=== PATIENT | male | born 1990 | race Caucasian/White ===

== ENCOUNTER 2019-10-31 20:19 | Inpatient (IN) ==
[2019-10-31 21:29] LABS: Bilirubin,Urine Negative (Negative); Blood,Urine Negative (Negative); Clarity,Urine Clear (Clear); Color,Urine Yellow (Yellow); Glucose,Urine (UA) Normal (Normal); Ketones,Urine Negative (Negative); Leukocyte Esterase,Urine Negative (Negative); Nitrite,Urine Negative (Negative); PH,Urine 7.5 pH Units (5.0-8.0); Protein,Urine Negative (Neg-Trace); Specific Gravity,Urine 1.017 (1.010-1.025); Urobilinogen,Urine Normal (Normal)
[2019-10-31 21:32] LABS: Basophils # 0.1 K/mcL (0.0-0.2); Basophils % 0.5 %; Eosinophils # 0.2 K/mcL (0.0-0.6); Eosinophils % 1.5 %; Hematocrit 45.9 % (37.5-50.1); Hemoglobin 16.2 g/dL (12.9-16.9); Immature Granulocytes % 0.5 % (0-4); Lymphocytes # 2.5 K/mcL (0.6-4.6); Mean Corpuscular HGB Conc 35.3 g/dL (31.6-35.5); Mean Corpuscular Hemoglobin 29.7 pg (28.0-33.3); Mean Corpuscular Volume 84.2 fL (83.0-100.0); Mean Platelet Volume 10.2 fL (9.4-12.4); Monocytes % 8.8 %; Neutrophils # 7.2 K/mcL (1.6-8.9); Platelet Count 248 K/mcL (140-400); Red Blood Count 5.45 M/mcL (4.19-5.50); Red Cell Distribution Width 13.2 % (11.5-14.5); Segmented Neutrophils % 65.7 %
[2019-10-31 21:41] LABS: Acetaminophen < 10 mcg/mL (10-20); BUN/Creatinine Ratio 8 (6-26); Blood Urea Nitrogen 10 mg/dL (6-20); Calcium 9.8 mg/dL (8.6-10.3); Carbon Dioxide 29 mEq/L (23-29); Chloride 107 mEq/L (98-107); Ethanol < 10 mg/dL (Less than 10); Glucose 100 mg/dL (70-105); Osmolality,Calculated 293 (280-300); Salicylate < 2.5 mg/dL (15.0-30.0); Sodium 142 mEq/L (136-145); eGFR For African Americans > 60 (> 60); eGFR For Non-African Americans > 60 (> 60)
[2019-10-31 21:47] LABS: Amphetamine Screen,Urine Negative ng/mL (Cutoff=1000); Barbiturate Screen,Urine Negative ng/mL (Cutoff=200); Benzodiazepines Screen,Urine Positive ng/mL (Cutoff=200); Cannabinoid Screen,Urine Negative ng/mL (Cutoff = 50); Cocaine Screen,Urine Negative ng/mL (Cutoff= 300); Opiate Screen,Urine Negative ng/mL (Cutoff=300); Phencyclidine Screen,Urine Negative ng/mL (Cutoff=25)
[2019-10-31] MEDS ORDERED: *HR* LORazepam 1 MG TABLET PO ONE (22:45)
[2019-10-31] MEDS ORDERED: Nicotine 21 MG PATCH.TD24 TD SCH (22:45)
[2019-10-31] MEDS ORDERED: Acetaminophen 325 MG TABLET PO PRN (23:25)
[2019-10-31] MEDS ORDERED: *HR* LORazepam 1 MG TABLET PO PRN (23:25)
[2019-10-31] MEDS ORDERED: Haloperidol Lactate 5 MG/ML VIAL IM PRN (23:25)
[2019-10-31] MEDS ORDERED: *HR* LORazepam 2 MG/ML VIAL IM PRN (23:25)
[2019-10-31] MEDS ORDERED: Mag Hydrox/Al Hydrox/Simeth 30 ML UDC PO PRN (23:25)
[2019-10-31] MEDS ORDERED: MOM Conc 10 ML UD.LIQ PO PRN (23:25)
[2019-11-01] MEDS: hydrOXYzine pamoate 25 MG CAPSULE PO PRN ×2 (02:05→18:59)
[2019-11-01] MEDS ORDERED: Nicotine 21 MG PATCH.TD24 TD SCH (09:00)
[2019-11-01] MEDS: Nicotine 2 MG GUM BC PRN ×2 (12:51→19:00)
[2019-11-01] MEDS: diazePAM 5 MG TABLET PO SCH ×2 (12:55→20:26)
[2019-11-02 08:01] VITALS: BP 128/79
[2019-11-02] MEDS: diazePAM 5 MG TABLET PO SCH (08:33)
== END 2019-11-02 10:35 | disposition home or self-care (01) | DRG 880 ==
LOC: EMEROOARM 20:19 → 1ANU 20:19
PROVIDERS: ADMIT Psychiatry & Neurology Psychiatry; ATTEND Psychiatry & Neurology Psychiatry

== ENCOUNTER 2019-11-19 16:52 | Inpatient (IN) ==
[2019-11-19 19:16] LABS: Basophils # 0.1 K/mcL (0.0-0.2); Basophils % 0.5 %; Eosinophils % 0.2 %; Hematocrit 49.4 % (37.5-50.1); Hemoglobin 17.4 g/dL (12.9-16.9); Immature Granulocytes % 0.5 % (0-4); Lymphocytes # 2.3 K/mcL (0.6-4.6); Lymphocytes % 15.9 %; Mean Corpuscular HGB Conc 35.2 g/dL (31.6-35.5); Mean Corpuscular Hemoglobin 29.4 pg (28.0-33.3); Mean Corpuscular Volume 83.6 fL (83.0-100.0); Mean Platelet Volume 9.9 fL (9.4-12.4); Monocytes # 1.2 K/mcL (0.0-1.3); Monocytes % 8.3 %; Platelet Count 255 K/mcL (140-400); Red Blood Count 5.91 M/mcL (4.19-5.50); Red Cell Distribution Width 13.1 % (11.5-14.5); Segmented Neutrophils % 74.6 %; White Blood Count 14.7 K/mcL (4.3-11.1)
[2019-11-19 19:32] LABS: Acetaminophen < 10 mcg/mL (10-20); BUN/Creatinine Ratio 21 (6-26); Blood Urea Nitrogen 21 mg/dL (6-20); Calcium 9.7 mg/dL (8.6-10.3); Carbon Dioxide 23 mEq/L (23-29); Chloride 106 mEq/L (98-107); Ethanol < 10 mg/dL (Less than 10); Glucose 97 mg/dL (70-105); Osmolality,Calculated 299 (280-300); Potassium 3.5 mEq/L (3.5-5.1); Salicylate < 2.5 mg/dL (15.0-30.0); Sodium 143 mEq/L (136-145); eGFR For African Americans > 60 (> 60); eGFR For Non-African Americans > 60 (> 60)
[2019-11-19 19:47] LABS: Bilirubin,Urine Moderate (Negative); Blood,Urine Negative (Negative); Clarity,Urine Cloudy (Clear); Color,Urine Dark Yellow (Yellow); Glucose,Urine (UA) Normal (Normal); Ketones,Urine 40 mg/dL (Negative); Leukocyte Esterase,Urine Negative (Negative); Nitrite,Urine Negative (Negative); Protein,Urine 30 mg/dL (Neg-Trace); Specific Gravity,Urine > 1.030 (1.010-1.025); Urobilinogen,Urine Normal (Normal)
[2019-11-19 19:49] LABS: Hyaline Casts,Urine None Seen per lpf (None-Few); WBC,Urine 0-3 per hpf (0-3)
[2019-11-19 19:57] LABS: Squamous Epithelial Cell,Urine Few per lpf (None-Few)
[2019-11-19 19:58] LABS: Bacteria,Urine Few per hpf (None-Few); Mucus,Urine Many per lpf (Few)
[2019-11-19 20:02] LABS: Amphetamine Screen,Urine Negative ng/mL (Cutoff=1000); Barbiturate Screen,Urine Negative ng/mL (Cutoff=200); Benzodiazepines Screen,Urine Positive ng/mL (Cutoff=200); Cannabinoid Screen,Urine Positive ng/mL (Cutoff = 50); Cocaine Screen,Urine Negative ng/mL (Cutoff= 300); Opiate Screen,Urine Negative ng/mL (Cutoff=300); Phencyclidine Screen,Urine Negative ng/mL (Cutoff=25)
[2019-11-19] MEDS ORDERED: Haloperidol Lactate 5 MG/ML VIAL IM PRN (22:34)
[2019-11-19] MEDS ORDERED: Acetaminophen 325 MG TABLET PO PRN (22:34)
[2019-11-19] MEDS ORDERED: *HR* LORazepam 1 MG TABLET PO PRN (22:34)
[2019-11-19] MEDS ORDERED: *HR* LORazepam 2 MG/ML VIAL IM PRN (22:34)
[2019-11-19] MEDS: diazePAM 5 MG TABLET PO SCH (23:03)
[2019-11-19] MEDS: QUEtiapine Fumarate 25 MG TABLET PO PRN (23:03)
[2019-11-20] MEDS: Nicotine 2 MG GUM BC PRN ×3 (06:54→18:11)
[2019-11-20] MEDS: Mag Hydrox/Al Hydrox/Simeth 30 ML UDC PO PRN ×2 (07:53→18:10)
[2019-11-20] MEDS: diazePAM 5 MG TABLET PO SCH ×3 (08:34→20:47)
[2019-11-20] MEDS ORDERED: Baclofen 10 MG TABLET PO ONE (09:06)
[2019-11-20] MEDS: Baclofen 10 MG TABLET PO PRN (20:51)
[2019-11-20] MEDS: QUEtiapine Fumarate 25 MG TABLET PO PRN (20:52)
[2019-11-21] MEDS: Nicotine 2 MG GUM BC PRN ×3 (04:55→17:16)
[2019-11-21] MEDS: Mag Hydrox/Al Hydrox/Simeth 30 ML UDC PO PRN ×2 (06:31→17:15)
[2019-11-21] MEDS: diazePAM 5 MG TABLET PO SCH (08:09)
[2019-11-21] MEDS: Baclofen 10 MG TABLET PO PRN ×2 (08:14→20:34)
[2019-11-21] MEDS ORDERED: diazePAM 5 MG TABLET PO SCH (21:00)
[2019-11-22] MEDS: Mag Hydrox/Al Hydrox/Simeth 30 ML UDC PO PRN ×2 (06:51→15:53)
[2019-11-22] MEDS: Nicotine 2 MG GUM BC PRN ×3 (06:52→15:51)
[2019-11-22] MEDS: Baclofen 10 MG TABLET PO PRN (08:56)
[2019-11-22] MEDS ORDERED: diazePAM 5 MG TABLET PO SCH (09:00)
[2019-11-22 09:34] VITALS: BP 136/100
== END 2019-11-22 18:33 | disposition home or self-care (01) | DRG 897 ==
LOC: EMEROOARM 16:52 → 1ANU 16:52
PROVIDERS: ADMIT Psychiatry & Neurology Psychiatry; ATTEND Psychiatry & Neurology Psychiatry